=== PATIENT | female | born 1980 | race Caucasian/White ===

== ENCOUNTER 2024-01-29 07:40 | Outpatient (CLI) | payer OTHER, SELFPAY ==
--- NOTE | ~2024-01-29 | MM_ITS ---
EXAMINATION: MM diagnostic sis BI w ambreen HISTORY: Call back from outside screening exam TECHNIQUE: Additional spot compression 3-D tomosynthesis images of the upper, outer right breast, and the upper, central left breast were performed and synthetic 2-D images were generated. CAD analysis was submitted and interpreted. COMPARISON: 12/16/2023 FINDINGS: Breast parenchyma is heterogeneously dense. The areas of asymmetric density in both breast demonstrate effacement with spot compression. No persistent mass lesion or distortion are evident. No suspicious microcalcification. IMPRESSION: No mammographic evidence for malignancy. BI-RADS Category 1: Negative Reviewed, dictated and finalized at location .
== END 2024-01-29 07:41 ==
LOC: MICIMG 07:42
PROVIDERS: PCP Family Medicine; Visit Provider Family Medicine
DX: R92.8 Other abnormal and inconclusive findings on diagnostic imaging of breast (principal)
CPT/HCPCS: 77062; 77066; G0279